=== PATIENT | male | born 1985 | race Two or more races ===

== ENCOUNTER 2021-10-18 16:27 | Emergency (ER) | payer OTHER ==
[~2021-10-18] VITALS: Ht 190.5 cm; Wt 77.1 kg
[2021-10-18 17:00] VITALS: BP 110/80
[2021-10-18] MEDS ORDERED: CEPH500C PO (19:31)
== END 2021-10-18 23:10 | disposition left against medical advice (07) ==
LOC: ER 16:27
DX: L03.116 Cellulitis of left lower limb (principal); F17.210 Nicotine dependence, cigarettes, uncomplicated; Z59.00 Homelessness unspecified